=== PATIENT | male | born 1985 | race African-American/Black ===

== ENCOUNTER 2017-11-18 18:51 | Observation (INO) | payer OTHER ==
[2017-11-18] MEDS ORDERED: Aspirin 81 MG Tab.Chew PO ONE ×2 (18:55→22:45)
[2017-11-18] MEDS ORDERED: Nitroglycerin 0.4 MG Tab.SL ONE (18:56)
[2017-11-18] MEDS: Nitroglycerin 0.4 MG Tab.SL SL PRN ×3 (18:56→19:10)
[2017-11-18] MEDS ORDERED: Aspirin 81 MG Tab.Chew ONE (18:58)
[2017-11-18] MEDS ORDERED: Morphine 2 MG/ML Syringe IVPUSH ONE (19:19)
[2017-11-18] MEDS ORDERED: Morphine 2 MG/ML Syringe ONE (19:22)
[2017-11-18] MEDS ORDERED: Ondansetron 4 MG/2 ML SDV IVPUSH ONE (19:25)
[2017-11-18] MEDS ORDERED: Ondansetron 4 MG/2 ML SDV ONE (19:27)
[2017-11-18 19:34] LABS: CHLORIDE,CL 102 mmol/L (98-107); SODIUM,NA 138 mmol/L (136-145)
--- NOTE | 2017-11-18 20:43 | EDM.PDOC ---
ED HPI GENERAL MEDICAL PROBLEM - General Chief Complaint: Cardiovascular Problem Stated Complaint: chest pain Time Seen by Provider: 11/18/17 18:55 Source of Information: Reports: Patient History Limitations: Reports: No Limitations - History of Present Illness INITIAL COMMENTS - FREE TEXT/NARRATIVE: Patient is a 32-year-old who was brought in by friend with severe chest pain about a 9 out of 10. This was more to the right then to the left. no radiation. patient had been coughing all day and was febrile when he arrived. at this time patient was admitted to the ER and placed on a compliance monitor. his blood pressure was a little elevated 158/58 with a heart rate of 128. at this time we started a cardiac workup and did give him a couple nitroglycerins which relieved his pain. chest x-ray was obtained which showed right upper lobe pneumonia and he did have chest pain to palpation. his temperature is 102.9 Fahrenheit Onset: Today (Patient is been coughing for about 2 weeks) Duration: Hour(s):, Improving Location: Reports: Chest Quality: Reports: Ache, Stabbing Severity: Severe Improves with: Reports: Medication Worsens with: Reports: Other (Palpation of chest) Context: Reports: Other (Coughing) Associated Symptoms: Reports: Chest Pain, Cough, Fever/Chills Chest Pain Score (Numeric/FACES): 6 - Related Data Allergies Allergy/AdvReac Type Severity Reaction Status Date / Time No Known Allergies Allergy Verified 11/18/17 22:13 Home Meds: Home Meds . [No Known Home Meds] 11/18/17 [History] Past Medical History - Past Health History Medical/Surgical History: Denies Medical/Surgical History Social & Family History - Tobacco Use Smoking Status *Q: Current Status Unknown ED ROS GENERAL - Review of Systems Review Of Systems: See Below Constitutional: Reports: Fever, Chills HEENT: Reports: No Symptoms Respiratory: Reports: Cough Cardiovascular: Reports: Chest Pain Endocrine: Reports: No Symptoms GI/Abdominal: Reports: No Symptoms : Reports: No Symptoms Musculoskeletal: Reports: No Symptoms Skin: Reports: No Symptoms Neurological: Reports: No Symptoms Psychiatric: Reports: No Symptoms Hematologic/Lymphatic: Reports: No Symptoms Immunologic: Reports: No Symptoms ED EXAM, GENERAL - Physical Exam Exam: See Below Exam Limited By: No Limitations General Appearance: Alert, WD/WN, Moderate Distress Ears: Normal External Exam, Normal Canal, Hearing Grossly Normal, Normal TMs Nose: Normal Inspection, Normal Mucosa, No Blood Throat/Mouth: Normal Inspection, Normal Lips, Normal Teeth, Normal Gums, Normal Oropharynx, Normal Voice, No Airway Compromise Head: Atraumatic, Normocephalic Neck: Normal Inspection, Supple, Non-Tender, Full Range of Motion Respiratory/Chest: Lungs Clear, Normal Breath Sounds, Decreased Breath Sounds Cardiovascular: Normal Peripheral Pulses, Regular Rate, Rhythm, No Edema, No Gallop, No JVD, No Murmur, No Rub GI/Abdominal: Normal Bowel Sounds, Soft, Non-Tender, No Organomegaly, No Distention, No Abnormal Bruit, No Mass (Male) Exam: Deferred Rectal (Males) Exam: Deferred Back Exam: Normal Inspection, Full Range of Motion, NT Extremities: Normal Inspection, Normal Range of Motion, Non-Tender, Normal Capillary Refill, No Pedal Edema Neurological: Alert, Oriented, CN II-XII Intact, Normal Cognition, Normal Gait, Normal Reflexes, No Motor/Sensory Deficits Psychiatric: Tearful Skin Exam: Warm, Dry, Intact, Normal Color, No Rash Lymphatic: No Adenopathy Course - Vital Signs Last Recorded V/S: Last Vital Signs Temp 97.6 F 11/19/17 12:00 Pulse 79 11/19/17 12:00 Resp 17 11/19/17 12:00 BP 120/49 L 11/19/17 12:00 Pulse Ox 99 11/19/17 12:00 - Orders/Labs/Meds Orders: Active Orders 24 hr Category Date Time Status Chest 1V Frontal [CR] Routine Exams 11/18/17 19:11 Taken Acetaminophen [Tylenol] Med 11/18/17 22:16 Active 650 mg PO Q4H PRN Medication Orders Acetaminophen (Tylenol) 650 mg PO Q4H PRN PRN Reason: Pain/Fever Last Admin: 11/18/17 23:37 Dose: 650 mg Hydrocodone Bitart/Acetaminophen ([place] 325-5 Mg) 1 tab PO Q4H PRN PRN Reason: Pain (moderate 4-6) Last Admin: 11/19/17 04:42 Dose: 1 tab Albuterol/Ipratropium (Duoneb 3.0-0.5 Mg/3 Ml) 3 ml NEB Q6HRRT JL Last Admin: 11/19/17 07:29 Dose: 3 ml Admin: 11/19/17 01:23 Dose: 3 ml Enoxaparin Sodium (Lovenox) 40 mg SUBCUT DAILY [facility] Last Admin: 11/19/17 07:29 Dose: 40 mg Levofloxacin/Dextrose 750 mg/ (Premix) 150 mls @ 100 mls/hr IV QPM JL Last Admin: 11/18/17 23:37 Dose: 100 mls/hr Piperacillin Sod/Tazobactam (Sod 4.5 gm/ Sodium Chloride) 100 mls @ 200 mls/hr IV Q6H JL Ibuprofen (Motrin) 600 mg PO Q6H PRN PRN Reason: Pain (mild 1-3) Last Admin: 11/19/17 07:29 Dose: 600 mg Sodium Chloride (Saline Flush) 10 ml FLUSH ASDIRECTED PRN PRN Reason: Keep Vein Open Labs: Laboratory Tests 11/18/17 11/18/17 11/18/17 Range/Units 18:55 18:55 18:55 WBC 22.3 H (4.0-10.2) K/uL RBC 4.68 (4.33-5.41) M/uL Hgb 13.4 (13.1-16.8) g/dL Hct 39.3 (39.0-49.0) % MCV 84.0 (84.0-98.0) fL MCH 28.6 (28.2-33.3) pg MCHC 34.1 (31.7-36.0) g/dL RDW 14.1 (11.2-14.1) % Plt Count 365 H (150-350) K/uL Neut % (Auto) 77.8 (45.0-80.0) % Lymph % (Auto) 11.6 (10.0-50.0) % [place] % (Auto) 9.6 (2.0-14.0) % Eos % (Auto) 0.8 (0.0-5.0) % Baso % (Auto) 0.2 (0.0-2.0) % Neut # (Auto) 17.34 H (1.40-7.00) K/uL Lymph # (Auto) 2.59 (0.50-3.50) K/uL [place] # (Auto) 2.14 H (0.00-1.00) K/uL Eos # (Auto) 0.17 (0.00-0.50) K/uL Baso # (Auto) 0.05 (0.00-0.20) K/uL PT 11.4 (9.8-11.7) SEC INR 1.1 APTT 30.3 H (22.1-29.8) SEC D-Dimer, Quantitative 325 (0-400) ng/mL Sodium (136-145) mmol/L Potassium (3.5-5.1) mmol/L Chloride (98-107) mmol/L Carbon Dioxide (21.0-32.0) mmol/L BUN (7-18) mg/dL Creatinine (0.51-1.17) mg/dL Est Cr Clr Drug Dosing Estimated GFR (MDRD) mL/min Glucose (74-106) mg/dL Lactic Acid (0.4-2.0) mmol/L Calcium (8.5-10.1) mg/dL Magnesium (1.8-2.4) mg/dL Total Bilirubin (0.2-1.0) mg/dL AST (15-37) U/L ALT (12-78) U/L Alkaline Phosphatase (46-116) IU/L Creatine Kinase (26-308) U/L Creatine Kinase Index (0.0-2.5) % CK-MB (CK-2) (0.00-3.60) ng/mL Troponin I (0.000-0.056) ng/mL NT-Pro-B Natriuret Pep (0-125) pg/mL Total Protein (6.4-8.2) g/dL Albumin (3.4-5.0) g/dL 11/18/17 11/18/17 Range/Units 18:55 18:55 WBC (4.0-10.2) K/uL RBC (4.33-5.41) M/uL Hgb (13.1-16.8) g/dL Hct (39.0-49.0) % MCV (84.0-98.0) fL MCH (28.2-33.3) pg MCHC (31.7-36.0) g/dL RDW (11.2-14.1) % Plt Count (150-350) K/uL Neut % (Auto) (45.0-80.0) % Lymph % (Auto) (10.0-50.0) % [place] % (Auto) (2.0-14.0) % Eos % (Auto) (0.0-5.0) % Baso % (Auto) (0.0-2.0) % Neut # (Auto) (1.40-7.00) K/uL Lymph # (Auto) (0.50-3.50) K/uL [place] # (Auto) (0.00-1.00) K/uL Eos # (Auto) (0.00-0.50) K/uL Baso # (Auto) (0.00-0.20) K/uL PT (9.8-11.7) SEC INR APTT (22.1-29.8) SEC D-Dimer, Quantitative (0-400) ng/mL Sodium 138 (136-145) mmol/L Potassium 3.1 L (3.5-5.1) mmol/L Chloride 102 (98-107) mmol/L Carbon Dioxide 23.1 (21.0-32.0) mmol/L BUN 14 (7-18) mg/dL Creatinine 1.10 (0.51-1.17) mg/dL Est Cr Clr Drug Dosing TNP Estimated GFR (MDRD) > 60 mL/min Glucose 102 (74-106) mg/dL Lactic Acid 1.1 (0.4-2.0) mmol/L Calcium 9.0 (8.5-10.1) mg/dL Magnesium 1.9 (1.8-2.4) mg/dL Total Bilirubin 0.5 (0.2-1.0) mg/dL AST 36 (15-37) U/L ALT 30 (12-78) U/L Alkaline Phosphatase 63 (46-116) IU/L Creatine Kinase 674 H (26-308) U/L Creatine Kinase Index 0.2 (0.0-2.5) % CK-MB (CK-2) 1.40 (0.00-3.60) ng/mL Troponin I 0.000 (0.000-0.056) ng/mL NT-Pro-B Natriuret Pep 118 (0-125) pg/mL Total Protein 8.1 (6.4-8.2) g/dL Albumin 3.4 (3.4-5.0) g/dL Meds: Medications Generic Name Dose Route Start Last Admin Trade Name Gasper PRN Reason Stop Dose Admin Acetaminophen 650 mg 11/18/17 22:16 11/18/17 23:37 Tylenol PO 650 mg Q4H PRN Administration Pain/Fever Hydrocodone Bitart/Acetaminophen 1 tab 11/18/17 22:32 11/19/17 04:42 [place] 325-5 Mg PO 1 tab Q4H PRN Administration Pain (moderate 4-6) Albuterol/Ipratropium 3 ml 11/19/17 02:00 11/19/17 07:29 Duoneb 3.0-0.5 Mg/3 Ml NEB 3 ml Q6HRRT LJ Administration Enoxaparin Sodium 40 mg 11/19/17 08:00 11/19/17 07:29 Lovenox SUBCUT 40 mg DAILY JL Administration Levofloxacin/Dextrose 750 mg/ 150 mls @ 100 mls/hr 11/18/17 23:30 11/18/17 23 :37 Premix IV 100 mls/hr QPM JL Administration Piperacillin Sod/Tazobactam 100 mls @ 200 mls/hr 11/19/17 17:00 Sod 4.5 gm/ Sodium Chloride IV Q6H JL Ibuprofen 600 mg 11/18/17 22:32 11/19/17 07:29 Motrin PO 600 mg Q6H PRN Administration Pain (mild 1-3) Sodium Chloride 10 ml 11/19/17 07:47 Saline Flush FLUSH ASDIRECTED PRN Keep Vein Open Discontinued Medications Generic Name Dose Route Start Last Admin Trade Name Gasper PRN Reason Stop Dose Admin Aspirin Confirm 11/18/17 18:58 11/18/17 19:00 Aspirin Administered 11/18/17 18:59 Not Given Dose 324 mg .ROUTE .STK-MED ONE Aspirin 324 mg 11/18/17 22:45 11/18/17 23:12 Aspirin PO 11/18/17 22:46 Not Given ONETIME ONE Aspirin 324 mg 11/19/17 08:00 11/19/17 07:28 Aspirin PO 11/19/17 08:01 324 mg DAILY ONE Administration Aspirin 324 mg 11/18/17 18:55 11/18/17 18:56 Aspirin PO 11/18/17 18:56 324 mg ONETIME ONE Administration Piperacillin Sod/Tazobactam 100 mls @ 200 mls/hr 11/18/17 23:00 11/19/17 10: 53 Sod 4.5 gm/ Sodium Chloride IV 200 mls/hr Q6H JL Administration Sodium Chloride 1,000 mls @ 150 mls/hr 11/19/17 03:00 11/19/17 10:06 Normal Saline IV 150 mls/hr ASDIRECTED JL Administration Morphine Sulfate Confirm 11/18/17 19:22 11/18/17 19:30 Morphine Administered 11/18/17 19:23 Not Given Dose 2 mg .ROUTE .STK-MED ONE Morphine Sulfate 2 mg 11/18/17 19:19 11/18/17 19:22 Morphine IVPUSH 11/18/17 19:20 2 mg ONETIME ONE Administration Nitroglycerin Confirm 11/18/17 18:56 11/18/17 18:55 Nitrostat Administered 11/18/17 18:57 Not Given Dose 0.4 mg .ROUTE .STK-MED ONE Nitroglycerin 0.4 mg 11/18/17 18:54 11/18/17 19:10 Nitrostat SL 0.4 mg Q5M PRN Administration Chest Pain Ondansetron HCl Confirm 11/18/17 19:27 11/18/17 19:40 Zofran Administered 11/18/17 19:28 Not Given Dose 4 mg .ROUTE .STK-MED ONE Ondansetron HCl 4 mg 11/18/17 19:25 11/18/17 19:29 Zofran IVPUSH 11/18/17 19:26 4 mg ONETIME ONE Administration Departure - Departure Time of Disposition: 22:32 Disposition: Refer to Observation Clinical Impression: Chest pain, Pneumonia - Problem List & Annotations (1) Chest pain SNOMED Code(s): 21904744 Code(s): R07.9 - CHEST PAIN, UNSPECIFIED Status: Acute Current Visit: No Annotation/Comment:: Patient will be referred to OBS- troponins 3 checked Qualifiers: Chest pain type: chest pain on breathing Qualified Code(s): R07.1 - Chest pain on breathing; R07.81 - Pleurodynia (2) Pneumonia SNOMED Code(s): 363908633 Code(s): J18.9 - PNEUMONIA, UNSPECIFIED ORGANISM Status: Acute Current Visit: No Annotation/Comment:: Patient will be admitted to rule out [place] start on antibiotics Qualifiers: Pneumonia type: due to unspecified organism Laterality: right Lung location: upper lobe of lung Qualified Code(s): J18.1 - Lobar pneumonia, unspecified organism - Problem List Review Problem List Initiated/Reviewed/Updated: Yes - My Orders Last 24 Hours: My Active Orders 11/18/17 19:11 Chest 1V Frontal [CR] Routine 11/18/17 22:16 Acetaminophen [Tylenol] 650 mg PO Q4H PRN - Assessment/Plan Admission H&P: Please use this note as an admission H&P Last 24 Hours: My Active Orders 11/18/17 19:11 Chest 1V Frontal [CR] Routine 11/18/17 22:16 Acetaminophen [Tylenol] 650 mg PO Q4H PRN Plan: We will refer the patient to observation for rule out [place] ; plus start him on antibiotics; his white count was greater than 22.3
[2017-11-18] MEDS ORDERED: Acetaminophen 325 MG Tab PO PRN (22:16)
[2017-11-18] MEDS ORDERED: Ibuprofen 600 MG Tab PO PRN (22:32)
[2017-11-18] MEDS ORDERED: Acetaminophen/HYDROcodone 325-5 MG Tab PO PRN (22:32)
[2017-11-18] MEDS ORDERED: Levofloxacin/Dextrose 5%-Water 750 MG in Premix Bag 1 BAG IV SCH (23:30)
[2017-11-18] MEDS: Piperacillin/Tazobactam 4.5 GM in Sodium Chloride 0.9% 100 ML IV SCH (23:35)
[2017-11-19] MEDS: Albuterol/Ipratropium 3.0-0.5 MG/3 ML Neb Soln NEB SCH ×3 (01:23→15:24)
[2017-11-19] MEDS: Sodium Chloride 0.9% 1,000 ML IV SCH ×2 (03:00→10:06)
[2017-11-19] MEDS: Piperacillin/Tazobactam 4.5 GM in Sodium Chloride 0.9% 100 ML IV SCH ×2 (04:35→10:53)
[2017-11-19] MEDS ORDERED: Sodium Chloride 0.9% 10 ML Syringe FLUSH PRN (07:47)
[2017-11-19 07:55] LABS: CHLORIDE,CL 104 mmol/L (98-107); SODIUM,NA 139 mmol/L (136-145)
[2017-11-19] MEDS ORDERED: Aspirin 81 MG Tab.Chew PO ONE (08:00)
[2017-11-19] MEDS ORDERED: Enoxaparin 40 MG/0.4 ML Syringe SUBCUT SCH (08:00)
--- NOTE | 2017-11-19 16:39 | PCM.DCSUM1 ---
Discharge Summary - Hospital Course Free Text/Narrative:: Patient was referred to observation yesterday for rule out [place] and right upper lobe pneumonia. Troponins x3 negative. Patient's WBC has improved and his chest x ray has improved as well today. Will send patient home on outpatient oral antibiotic therapy. Diagnosis: Stroke: No - Discharge Data Discharge Date: 11/19/17 Discharge Disposition: Home, Self-Care 01 Condition: Good - Discharge Diagnosis/Problem(s) (1) Chest pain SNOMED Code(s): 34180748 ICD Code: R07.9 - CHEST PAIN, UNSPECIFIED Status: Acute Current Visit: Yes Problem Details: troponins negative. denies chest pain. Qualifiers: Chest pain type: chest pain on breathing Qualified Code(s): R07.1 - Chest pain on breathing; R07.81 - Pleurodynia (2) Pneumonia SNOMED Code(s): 632035398 ICD Code: J18.9 - PNEUMONIA, UNSPECIFIED ORGANISM Status: Acute Current Visit: Yes Problem Details: WBC improved. Chest x ray improved. Qualifiers: Pneumonia type: due to unspecified organism Laterality: right Lung location: upper lobe of lung Qualified Code(s): J18.1 - Lobar pneumonia, unspecified organism - Patient Instructions Diet: Usual Diet as Tolerated Activity: As Tolerated Driving: May Drive Today Showering/Bathing: May Shower Other/Special Instructions: Follow up with primary care provider in 7-10 days for post hospitalization appointment. Recommend recheck of white blood cell count and possibly chest x ray. Call if chest pain returns or symptoms worsen. - Discharge Plan Prescriptions/Med Rec: Amoxicillin/Potassium Clav [Augmentin 875-125 Tablet] 1 each PO BID #20 tablet Levofloxacin [Levaquin] 750 mg PO DAILY #7 tab Home Medications: Home Meds Amoxicillin/Potassium Clav [Augmentin 875-125 Tablet] 1 each PO BID #20 tablet 11/19/17 [Rx] Levofloxacin [Levaquin] 750 mg PO DAILY #7 tab 11/19/17 [Rx] Patient Handouts: Nonspecific Chest Pain, [id number], Community-Acquired Pneumonia, Adult, [id number] Forms: ED Department Discharge Referrals: PCP,Not In Area [Primary Care Provider] - (CALL [facility] IF ANY QUESTIONS) - Discharge Summary/Plan Comment DC Time >30 min.: No - General Info Date of Service: 11/19/17 Functional Status: Reports: Tolerating Diet - Review of Systems General: Reports: Fatigue. Denies: Fever, Night Sweats HEENT: Reports: No Symptoms Pulmonary: Reports: Cough (at times) Cardiovascular: Denies: Chest Pain, Palpitations Gastrointestinal: Reports: No Symptoms Genitourinary: Reports: No Symptoms Musculoskeletal: Reports: No Symptoms Skin: Reports: No Symptoms Neurological: Reports: No Symptoms Psychiatric: Reports: No Symptoms - Patient Data Vitals - Most Recent: Last Vital Signs Temp 98.9 F 11/19/17 15:56 Pulse 79 11/19/17 15:56 Resp 18 11/19/17 15:56 BP 132/89 11/19/17 15:56 Pulse Ox 100 11/19/17 15:56 Weight - Most Recent: 239 lb I&O - Last 24 hours: Intake & Output 11/19/17 11/19/17 11/19/17 06:59 14:59 22:59 Intake Total 1038 2050 Output Total 400 Balance 638 2050 Lab Results - Last 24 hrs: Laboratory Results - last 24 hr 11/18/17 11/18/17 11/18/17 Range/Units 18:55 18:55 18:55 WBC 22.3 H (4.0-10.2) K/uL RBC 4.68 (4.33-5.41) M/uL Hgb 13.4 (13.1-16.8) g/dL Hct 39.3 (39.0-49.0) % MCV 84.0 (84.0-98.0) fL MCH 28.6 (28.2-33.3) pg MCHC 34.1 (31.7-36.0) g/dL RDW 14.1 (11.2-14.1) % Plt Count 365 H (150-350) K/uL Neut % (Auto) 77.8 (45.0-80.0) % Lymph % (Auto) 11.6 (10.0-50.0) % [place] % (Auto) 9.6 (2.0-14.0) % Eos % (Auto) 0.8 (0.0-5.0) % Baso % (Auto) 0.2 (0.0-2.0) % Neut # (Auto) 17.34 H (1.40-7.00) K/uL Lymph # (Auto) 2.59 (0.50-3.50) K/uL [place] # (Auto) 2.14 H (0.00-1.00) K/uL Eos # (Auto) 0.17 (0.00-0.50) K/uL Baso # (Auto) 0.05 (0.00-0.20) K/uL PT 11.4 (9.8-11.7) SEC INR 1.1 APTT 30.3 H (22.1-29.8) SEC D-Dimer, Quantitative 325 (0-400) ng/mL Sodium (136-145) mmol/L Potassium (3.5-5.1) mmol/L Chloride (98-107) mmol/L Carbon Dioxide (21.0-32.0) mmol/L BUN (7-18) mg/dL Creatinine (0.51-1.17) mg/dL Est Cr Clr Drug Dosing Estimated GFR (MDRD) mL/min Glucose (74-106) mg/dL Lactic Acid (0.4-2.0) mmol/L Calcium (8.5-10.1) mg/dL Magnesium (1.8-2.4) mg/dL Total Bilirubin (0.2-1.0) mg/dL AST (15-37) U/L ALT (12-78) U/L Alkaline Phosphatase (46-116) IU/L Creatine Kinase (26-308) U/L Creatine Kinase Index (0.0-2.5) % CK-MB (CK-2) (0.00-3.60) ng/mL Troponin I (0.000-0.056) ng/mL NT-Pro-B Natriuret Pep (0-125) pg/mL Total Protein (6.4-8.2) g/dL Albumin (3.4-5.0) g/dL 11/18/17 11/18/17 11/19/17 Range/Units 18:55 18:55 01:20 WBC (4.0-10.2) K/uL RBC (4.33-5.41) M/uL Hgb (13.1-16.8) g/dL Hct (39.0-49.0) % MCV (84.0-98.0) fL MCH (28.2-33.3) pg MCHC (31.7-36.0) g/dL RDW (11.2-14.1) % Plt Count (150-350) K/uL Neut % (Auto) (45.0-80.0) % Lymph % (Auto) (10.0-50.0) % [place] % (Auto) (2.0-14.0) % Eos % (Auto) (0.0-5.0) % Baso % (Auto) (0.0-2.0) % Neut # (Auto) (1.40-7.00) K/uL Lymph # (Auto) (0.50-3.50) K/uL [place] # (Auto) (0.00-1.00) K/uL Eos # (Auto) (0.00-0.50) K/uL Baso # (Auto) (0.00-0.20) K/uL PT (9.8-11.7) SEC INR APTT (22.1-29.8) SEC D-Dimer, Quantitative (0-400) ng/mL Sodium 138 (136-145) mmol/L Potassium 3.1 L (3.5-5.1) mmol/L Chloride 102 (98-107) mmol/L Carbon Dioxide 23.1 (21.0-32.0) mmol/L BUN 14 (7-18) mg/dL Creatinine 1.10 (0.51-1.17) mg/dL Est Cr Clr Drug Dosing TNP Estimated GFR (MDRD) > 60 mL/min Glucose 102 (74-106) mg/dL Lactic Acid 1.1 (0.4-2.0) mmol/L Calcium 9.0 (8.5-10.1) mg/dL Magnesium 1.9 (1.8-2.4) mg/dL Total Bilirubin 0.5 (0.2-1.0) mg/dL AST 36 (15-37) U/L ALT 30 (12-78) U/L Alkaline Phosphatase 63 (46-116) IU/L Creatine Kinase 674 H (26-308) U/L Creatine Kinase Index 0.2 (0.0-2.5) % CK-MB (CK-2) 1.40 (0.00-3.60) ng/mL Troponin I 0.000 0.000 (0.000-0.056) ng/mL NT-Pro-B Natriuret Pep 118 (0-125) pg/mL Total Protein 8.1 (6.4-8.2) g/dL Albumin 3.4 (3.4-5.0) g/dL 11/19/17 11/19/17 11/19/17 Range/Units 07:20 07:20 07:20 WBC 17.7 H (4.0-10.2) K/uL RBC 4.37 (4.33-5.41) M/uL Hgb 12.6 L (13.1-16.8) g/dL Hct 37.0 L (39.0-49.0) % MCV 84.7 (84.0-98.0) fL MCH 28.8 (28.2-33.3) pg MCHC 34.1 (31.7-36.0) g/dL RDW 13.9 (11.2-14.1) % Plt Count 347 (150-350) K/uL Neut % (Auto) 78.2 (45.0-80.0) % Lymph % (Auto) 10.4 (10.0-50.0) % [place] % (Auto) 10.5 (2.0-14.0) % Eos % (Auto) 0.7 (0.0-5.0) % Baso % (Auto) 0.2 (0.0-2.0) % Neut # (Auto) 13.86 H (1.40-7.00) K/uL Lymph # (Auto) 1.85 (0.50-3.50) K/uL [place] # (Auto) 1.86 H (0.00-1.00) K/uL Eos # (Auto) 0.12 (0.00-0.50) K/uL Baso # (Auto) 0.03 (0.00-0.20) K/uL PT (9.8-11.7) SEC INR APTT (22.1-29.8) SEC D-Dimer, Quantitative (0-400) ng/mL Sodium 139 (136-145) mmol/L Potassium 3.1 L (3.5-5.1) mmol/L Chloride 104 (98-107) mmol/L Carbon Dioxide 23.4 (21.0-32.0) mmol/L BUN 9 (7-18) mg/dL Creatinine 0.98 (0.51-1.17) mg/dL Est Cr Clr Drug Dosing 114.19 Estimated GFR (MDRD) > 60 mL/min Glucose 101 (74-106) mg/dL Lactic Acid (0.4-2.0) mmol/L Calcium 8.4 L (8.5-10.1) mg/dL Magnesium (1.8-2.4) mg/dL Total Bilirubin (0.2-1.0) mg/dL AST (15-37) U/L ALT (12-78) U/L Alkaline Phosphatase (46-116) IU/L Creatine Kinase (26-308) U/L Creatine Kinase Index (0.0-2.5) % CK-MB (CK-2) (0.00-3.60) ng/mL Troponin I 0.000 (0.000-0.056) ng/mL NT-Pro-B Natriuret Pep (0-125) pg/mL Total Protein (6.4-8.2) g/dL Albumin (3.4-5.0) g/dL Med Orders - Current: Current Medications Acetaminophen (Tylenol) 650 mg PO Q4H PRN PRN Reason: Pain/Fever Last Admin: 11/18/17 23:37 Dose: 650 mg Hydrocodone Bitart/Acetaminophen ([place] 325-5 Mg) 1 tab PO Q4H PRN PRN Reason: Pain (moderate 4-6) Last Admin: 11/19/17 04:42 Dose: 1 tab Albuterol/Ipratropium (Duoneb 3.0-0.5 Mg/3 Ml) 3 ml NEB Q6HRRT [facility] Last Admin: 11/19/17 15:24 Dose: 3 ml Enoxaparin Sodium (Lovenox) 40 mg SUBCUT DAILY [facility] Last Admin: 11/19/17 07:29 Dose: 40 mg Levofloxacin/Dextrose 750 mg/ (Premix) 150 mls @ 100 mls/hr IV QPM [facility] Last Admin: 11/18/17 23:37 Dose: 100 mls/hr Piperacillin Sod/Tazobactam (Sod 4.5 gm/ Sodium Chloride) 100 mls @ 200 mls/hr IV Q6H JL Ibuprofen (Motrin) 600 mg PO Q6H PRN PRN Reason: Pain (mild 1-3) Last Admin: 11/19/17 07:29 Dose: 600 mg Sodium Chloride (Saline Flush) 10 ml FLUSH ASDIRECTED PRN PRN Reason: Keep Vein Open Discontinued Medications Aspirin (Aspirin) Confirm Administered Dose 324 mg .ROUTE .STK-MED ONE Stop: 11/18/17 18:59 Last Admin: 11/18/17 19:00 Dose: Not Given Aspirin (Aspirin) 324 mg PO ONETIME ONE Stop: 11/18/17 22:46 Last Admin: 11/18/17 23:12 Dose: Not Given Aspirin (Aspirin) 324 mg PO DAILY ONE Stop: 11/19/17 08:01 Last Admin: 11/19/17 07:28 Dose: 324 mg Aspirin (Aspirin) 324 mg PO ONETIME ONE Stop: 11/18/17 18:56 Last Admin: 11/18/17 18:56 Dose: 324 mg Piperacillin Sod/Tazobactam (Sod 4.5 gm/ Sodium Chloride) 100 mls @ 200 mls/hr IV Q6H JL Last Admin: 11/19/17 10:53 Dose: 200 mls/hr Sodium Chloride (Normal Saline) 1,000 mls @ 150 mls/hr IV ASDIRECTED JL Last Admin: 11/19/17 10:06 Dose: 150 mls/hr Morphine Sulfate (Morphine) Confirm Administered Dose 2 mg .ROUTE .STK-MED ONE Stop: 11/18/17 19:23 Last Admin: 11/18/17 19:30 Dose: Not Given Morphine Sulfate (Morphine) 2 mg IVPUSH ONETIME ONE Stop: 11/18/17 19:20 Last Admin: 11/18/17 19:22 Dose: 2 mg Nitroglycerin (Nitrostat) Confirm Administered Dose 0.4 mg .ROUTE .STK-MED ONE Stop: 11/18/17 18:57 Last Admin: 11/18/17 18:55 Dose: Not Given Nitroglycerin (Nitrostat) 0.4 mg SL Q5M PRN PRN Reason: Chest Pain Last Admin: 11/18/17 19:10 Dose: 0.4 mg Ondansetron HCl (Zofran) Confirm Administered Dose 4 mg .ROUTE .STK-MED ONE Stop: 11/18/17 19:28 Last Admin: 11/18/17 19:40 Dose: Not Given Ondansetron HCl (Zofran) 4 mg IVPUSH ONETIME ONE Stop: 11/18/17 19:26 Last Admin: 11/18/17 19:29 Dose: 4 mg - Exam General: Reports: Alert, Oriented HEENT: Reports: Pupils Equal, Pupils Reactive, EOMI, Mucous Membr. Moist/[place] Neck: Reports: Supple Lungs: Reports: Normal Respiratory Effort, Decreased Breath Sounds (right side) Cardiovascular: Reports: Regular Rate, Regular Rhythm GI/Abdominal Exam: Normal Bowel Sounds, Soft, Non-Tender, No Organomegaly, No Distention, No Abnormal Bruit, No Mass, Pelvis Stable (Male) Exam: Deferred Rectal (Males) Exam: Deferred Back Exam: Reports: Normal Inspection, Full Range of Motion Extremities: Normal Inspection, Normal Range of Motion, Non-Tender, No Pedal Edema, Normal Capillary Refill Skin: Reports: Warm, Dry, Intact Neurological: Reports: No New Focal Deficit Psy/Mental Status: Reports: Alert, Normal Affect, Normal Mood
[2017-11-19] MEDS ORDERED: Piperacillin/Tazobactam 4.5 GM in Sodium Chloride 0.9% 100 ML IV SCH (17:00)
== END 2017-11-19 17:24 | disposition home or self-care (01) ==
LOC: LL.ED 18:51 → LL.MS 20:15 → UNDOADMOB 20:15 → LL.MS 22:32 → EDBD 22:32
PROVIDERS: ADMIT Family Medicine; ATTEND Family Medicine
DX: R07.9 Chest pain, unspecified (principal); J18.1 Lobar pneumonia, unspecified organism; Z79.2 Long term (current) use of antibiotics
CPT/HCPCS: 36415; 71045; 71046; 80048; 80053; 82550; 82553; 83605; 83735; 83880; 84484; 85025; 85379; 85610; 85730; 93005; 94640; 96374; 96375; 99285; A9270; J1650; J1956; J2270; J2405; J2543; J7030; J7050; 96361; 96365; 96367; 96372; G0378